=== PATIENT | female | born 1960 | race Caucasian/White ===

== ENCOUNTER 2017-06-29 09:35 | Emergency (ER) | payer OTHER ==
[~2017-06-29] VITALS: Ht 175.3 cm; Wt 80.0 kg
[2017-06-29 09:36] VITALS: BP 224/113; PULSE 93; RESP 18; TEMP 98.8; O2SAT 99
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
[2017-06-29 11:38] VITALS: BP 163/112
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
[2017-06-29] MEDS ORDERED: KETOROLAC TROMETHAMINE 60 MG/2 ML (IM) VIAL IM ONE (12:15)
== END 2017-06-29 12:50 | disposition home or self-care (01) ==
LOC: NEPD 09:35
DX: S16.1XXA Strain of muscle, fascia and tendon at neck level, initial encounter (principal); R03.0 Elevated blood-pressure reading, without diagnosis of hypertension; E11.9 Type 2 diabetes mellitus without complications; V89.2XXA Person injured in unspecified motor-vehicle accident, traffic, initial encounter
CPT/HCPCS: 72125; 96372; 99285; J1885; L0150